=== PATIENT | male | born 1960 | race African-American/Black ===

== ENCOUNTER 2017-09-17 12:03 | Emergency (ER) | payer OTHER ==
[~2017-09-17] VITALS: Ht 172.7 cm; Wt 72.6 kg
[2017-09-17] MEDS ORDERED: Morphine Sulfate 4mg/ml Inj IVP ONE (12:15)
[2017-09-17 12:30] VITALS: BP 124/80
[2017-09-17 12:33] LABS: BASOPHILS % (AUTO) 1.1 % (0.0-2.0); EOSINOPHILS % (AUTO) 1.8 % (0.0-3.0); HEMATOCRIT 46.4 % (42.0-52.0); HEMOGLOBIN 15.8 G/DL (14.2-18.0); LYMPHOCYTES % (AUTO) 50.4 % (20.0-45.0); MEAN CORPUSCULAR VOLUME 92 FL (80-99); NEUTROPHILS % (AUTO) 43.7 % (45.0-75.0); PLATELET COUNT 205 K/UL (150-450); RED BLOOD COUNT 5.02 M/UL (4.70-6.10); RED CELL DISTRIBUTION WIDTH 11.5 % (11.6-14.8); WHITE BLOOD COUNT 6.1 K/UL (4.8-10.8)
[2017-09-17 12:45] LABS: ANION GAP 8 mmol/L (5-15); BLOOD UREA NITROGEN 14 mg/dL (7-18); CALCIUM 9.2 MG/DL (8.5-10.1); CARBON DIOXIDE 25 MMOL/L (21-32); CHLORIDE 107 MMOL/L (98-107); CREATININE 1.3 MG/DL (0.55-1.30); POTASSIUM 3.6 MMOL/L (3.5-5.1); SODIUM 140 MMOL/L (136-145)
[2017-09-17 12:48] LABS: ALANINE AMINOTRANSFERASE 23 U/L (12-78); ALBUMIN 3.3 G/DL (3.4-5.0); ALBUMIN/GLOBULIN RATIO 0.8 (1.0-2.7); ALKALINE PHOSPHATASE 62 U/L (46-116); ASPARTATE AMINO TRANSFERASE 14 U/L (15-37); BILIRUBIN,TOTAL 0.7 MG/DL (0.2-1.0); CREATINE KINASE 111 U/L (26-308)
[2017-09-17 13:31] VITALS: BP 131/77
[2017-09-17] MEDS ORDERED: HYDROmorphone 1mg/ml Carpuject IVP ONE (14:00)
[2017-09-17 14:08] LABS: APPEARANCE,URINE CLEAR; BILIRUBIN, URINE NEGATIVE (NEGATIVE); COLOR,URINE PALE YELLOW; GLUCOSE, URINE (UA) NEGATIVE (NEGATIVE); KETONES,URINE NEGATIVE (NEGATIVE); LEUKOCYTE ESTERASE ,URINE NEGATIVE (NEGATIVE); NITRITE,URINE NEGATIVE (NEGATIVE); PH,URINE 5 (4.5-8.0); PROTEIN,URINE NEGATIVE (NEGATIVE); UROBILINOGEN,URINE NORMAL MG/DL (0.0-1.0)
--- NOTE | 2017-09-17 16:01 | Emergency Room Report ---
History of Present Illness General Chief Complaint: Abdominal Pain Source: Patient, Family Member, EMS Present Illness HPI The patient presents with epigastric pain which began this morning. This is severe - rated 6/10, constant. Denies alcohol and nonsteroidal anti- inflammatories. He does take medication for gout and supposed to take medicine for GERD. Denies any vomiting or melena. The pain does not radiate to his back. It is epigastric. Burning pain severe pressure. Denies fever. GERD and Gout Not compliant with omeperazole. No endoscopy. No chest pain, cough, dysuria, headache, rashes, change in bowels, joint pain ( gout stable). No ill contacts. Allergies: Coded Allergies: No Known Allergies (Unverified , 09/17/17) Patient History Past Medical History: see triage record Social History: Reports: drug use, Denies: smoking, alcohol use Social History Narrative Reviewed Nursing Documentation: PMH: Agreed, PSxH: Agreed Nursing Documentation-PMH Hx Gastrointestinal Problems: Yes - gastritis Review of Systems All Other Systems: negative except mentioned in HPI Physical Exam Vital Signs Date Time Temp Pulse Resp B/P (MAP) Pulse Ox O2 Delivery O2 Flow Rate FiO2 09/17/17 11:59 98.0 88 16 124/80 98 Room Air 98.1 Sp02 EP Interpretation: reviewed, normal General Appearance: well appearing, GCS 15, mild distress Head: normocephalic, atraumatic Eyes: bilateral eye normal inspection, bilateral eye PERRL ENT: moist mucus membranes Neck: supple Respiratory: lungs clear, normal breath sounds Cardiovascular #1: regular rate, rhythm Cardiovascular #2: 2+ radial (R) Gastrointestinal: normal inspection, normal bowel sounds, no mass, non- distended, no guarding, no rebound, tenderness - epigastric Genitourinary: no CVA tenderness Musculoskeletal: back normal, gait/station normal, normal range of motion Neurologic: alert, oriented x3, grossly normal Psychiatric: anxious - and in pain (looks worse than6/10) Skin: normal inspection, warm/dry Medical Decision Making Diagnostic Impression: Primary Impression: Epigastric pain ER Course Patient with h/o GERD presents with epigastric pain which is severe. DDx: gastritis, AMI, PUD, pancreatitis, diverticultis amongst others. Exam against PE. Evaluation with EKG, CXR, Abd films, labs. Treatment with IV hydration, zofran, pepcid and morphine. EKG without injury, CXR normal, Abd, normal. Labs with normal WBC, H/H, CMP. Still with pain after initial dosing - though resting calmly. Dilaudid ordered. Significant relief with improved clinical exam (though rated pain same). Discussed need for follow up with PMD (sooner than appointment). Also of need for GI referral. Also discussed need for daily omeprazole. .Patient stable for outpatient observation and treatment. Laboratory Tests Test 09/17/17 12:15 09/17/17 13:04 White Blood Count 6.1 K/UL (4.8-10.8) Red Blood Count 5.02 M/UL (4.70-6.10) Hemoglobin 15.8 G/DL (14.2-18.0) Hematocrit 46.4 % (42.0-52.0) Mean Corpuscular Volume 92 FL (80-99) Mean Corpuscular Hemoglobin 31.5 PG (27.0-31.0) H Mean Corpuscular Hemoglobin Concent 34.2 G/DL (32.0-36.0) Red Cell Distribution Width 11.5 % (11.6-14.8) L Platelet Count 205 K/UL (150-450) Mean Platelet Volume 6.0 FL (6.5-10.1) L Neutrophils (%) (Auto) 43.7 % (45.0-75.0) L Lymphocytes (%) (Auto) 50.4 % (20.0-45.0) H Monocytes (%) (Auto) 3.0 % (1.0-10.0) Eosinophils (%) (Auto) 1.8 % (0.0-3.0) Basophils (%) (Auto) 1.1 % (0.0-2.0) Prothrombin Time 10.0 SEC (9.30-11.50) Prothrombin Time INR 1.0 (0.9-1.1) PTT 27 SEC (23-33) Sodium Level 140 MMOL/L (136-145) Potassium Level 3.6 MMOL/L (3.5-5.1) Chloride Level 107 MMOL/L (98-107) Carbon Dioxide Level 25 MMOL/L (21-32) Anion Gap 8 mmol/L (5-15) Blood Urea Nitrogen 14 mg/dL (7-18) Creatinine 1.3 MG/DL (0.55-1.30) Estimate Glomerular Filtration Rate 56.7 mL/min (>60) Glucose Level 151 MG/DL (74-106) H Calcium Level 9.2 MG/DL (8.5-10.1) Total Bilirubin 0.7 MG/DL (0.2-1.0) Aspartate Amino Transferase (AST) 14 U/L (15-37) L Alanine Aminotransferase (ALT) 23 U/L (12-78) Alkaline Phosphatase 62 U/L (46-116) Total Creatine Kinase 111 U/L (26-308) Troponin I 0.000 ng/mL (0.000-0.056) Total Protein 7.5 G/DL (6.4-8.2) Albumin 3.3 G/DL (3.4-5.0) L Globulin 4.2 g/dL Albumin/Globulin Ratio 0.8 (1.0-2.7) L Lipase 196 U/L (73-393) Urine Color Pale yellow Urine Appearance Clear Urine pH 5 (4.5-8.0) Urine Specific [place] 1.015 (1.005-1.035) Urine Protein Negative (NEGATIVE) Urine Glucose (UA) Negative (NEGATIVE) Urine Ketones Negative (NEGATIVE) Urine Occult Blood Negative (NEGATIVE) Urine Nitrite Negative (NEGATIVE) Urine Bilirubin Negative (NEGATIVE) Urine Urobilinogen Normal MG/DL (0.0-1.0) Urine Leukocyte Esterase Negative (NEGATIVE) EKG Diagnostic Results Rate: normal Rhythm: NSR ST Segments: no acute changes Rhythm Strip Diag. Results EP Interpretation: yes Rhythm: NSR, no PVC's, no ectopy Chest X-Ray Diagnostic Results Chest X-Ray Diagnostic Results #1: Chest X-Ray Ordered: Yes # of Views/Limited/Complete: 1 View Indication: Other EP Interpretation: Yes Interpretation: no consolidation, no effusion, no pneumothorax Impression: No acute disease Electronically Signed by: Christiano Sims MD Chest X-Ray Diagnostic Results #2: Chest X-Ray Ordered: Yes # of Views/Limited/Complete: 1 View Indication: Other Interpretation: no consolidation, no effusion, no pneumothorax Impression: No acute disease Electronically Signed by: Christiano Sims MD Other X-Ray Diagnostic Results Other X-Ray Diagnostic Results : # of Views/Limited Vs Complete: 1 View Indication: Pain EP Interpretation: Yes Interpretation: nonspecific bowel gas, no sbo, other - No masses - calcifications Impression: No acute disease Electronically Signed by: Christiano Sims MD Last Vital Signs Date Time Temp Pulse Resp B/P (MAP) Pulse Ox O2 Delivery O2 Flow Rate FiO2 09/17/17 16:16 97.8 16 129/79 98 Room Air 97.8 09/17/17 11:59 88 Status: improved Disposition: HOME, SELF-CARE Condition: Improved Scripts Mag Hydrox/Al Hydrox/Simeth (MAALOX MAXIMUM STRENGTH SUSP) 355 Ml Oral.susp 30 ML PO Q6HR, #240 ML Prov: Christiano Sims M.D. 09/17/17 Hydrocodone Bit/Acetaminophen 5-325* (NORCO 5-325*) 1 Each Tablet 1 TAB ORAL Q6H Y for For Pain, #20 TAB 0 Refills Prov: Christiano Sims M.D. 09/17/17 Referrals: CHRISTINE MOYA,REFERRING (PCP) Christiano Sims M.D. Sep 17, 2017 16:01
[2017-09-17] MEDS ORDERED: MAALOX MAXIMUM355 M1 PO (16:05)
[2017-09-17] MEDS ORDERED: NORCO 5-325 TA1 EACH ORAL (16:05)
[2017-09-17 16:16] VITALS: BP 129/79
--- NOTE | 2017-09-18 09:56 | Diagnostic Imaging Report ---
Indication: SOB Technique: XRAY Chest 1v Comparison: None. Findings: The cardiomediastinal silhouette is normal. The lungs are clear. There is no evidence of pleural fluid. The bones are unremarkable. Impression: Normal chest.
--- NOTE | 2017-09-18 09:57 | Diagnostic Imaging Report ---
Indication: Reason For Exam: ABD PAIN. Technique: One view abdomen Findings: The bowel gas pattern is nonobstructive. There is no free fluid. No gross free air. Degenerative changes are noted in the spine. Impression: Negative one view abdomen..
--- NOTE | 2017-09-18 16:17 | Cardiology Report ---
APPROVED REPORT EKG Measurement Heart [id number] Sinus rhythm with 1st degree AV block Otherwise normal ECG
== END 2017-09-17 16:16 | disposition home or self-care (01) ==
LOC: EDBD 12:03 → EMR 13:35
DX: R10.13 Epigastric pain (principal); K21.9 Gastro-esophageal reflux disease without esophagitis; M10.9 Gout, unspecified
CPT/HCPCS: 36415; 71045; 74018; 80053; 81003; 82550; 83690; 84484; 85025; 85610; 85730; 93005; 96374; 96375; 99284; J1170; J2270; J2405; S0028